=== PATIENT | male | born 1935 | race Caucasian/White ===

== ENCOUNTER 2017-08-21 14:55 | Outpatient (CLI) | payer MEDICARE ==
[2017-08-21 14:54] VITALS: BP 123/68
[~2017-08-21 14:55] MED LIST: CARV-50 PO; CITA40TA22 PO; COU1T PO; COU3T PO; DIGO125T78 PO; FURO40TA4 PO; IPRA3AMP9 NEB; LACT1CAP26 PO; LOSA25TA96 PO; POTA20TA19 PO; TAMS0.4C32 PO
== END 2017-08-21 15:50 | disposition home or self-care (01) ==
LOC: ORTHO 14:55
PROVIDERS: ATTEND Nurse Practitioner Family
DX: S72.112D Displaced fracture of greater trochanter of left femur, subsequent encounter for closed fracture with routine healing (principal); E78.00 Pure hypercholesterolemia, unspecified; I10 Essential (primary) hypertension; J44.9 Chronic obstructive pulmonary disease, unspecified; W10.9XXD Fall (on) (from) unspecified stairs and steps, subsequent encounter
CPT/HCPCS: 73552; 99213

== ENCOUNTER 2017-09-18 08:08 | Emergency (ER) | payer MEDICARE ==
[~2017-09-18 08:08] MED LIST changes: +IPRA3AMP9 IH; +METH4TAB81 PO; +MULT-38 PO
== END 2017-09-18 09:28 | disposition home or self-care (01) ==
LOC: ER 08:08
DX: M75.102 Unspecified rotator cuff tear or rupture of left shoulder, not specified as traumatic (principal); I48.91 Unspecified atrial fibrillation; I11.0 Hypertensive heart disease with heart failure; I50.9 Heart failure, unspecified; E78.00 Pure hypercholesterolemia, unspecified; Z98.890 Other specified postprocedural states; Z79.01 Long term (current) use of anticoagulants; Z79.899 Other long term (current) drug therapy; Z95.0 Presence of cardiac pacemaker
CPT/HCPCS: 29105; 73030; 99284; A4565

== ENCOUNTER 2019-02-27 22:03 | Inpatient (IN) | payer MEDICARE ==
[~2019-02-27] VITALS: Ht 185.4 cm; Wt 95.2 kg
[2019-02-27] MEDS ORDERED: acetaminophen 325mg tablet PO STA (22:17)
[2019-02-27] MEDS ORDERED: CefTRIAXone 2gm/D5W 50ml 50 ML IV ONE (22:20)
[2019-02-27 22:44] LABS: BASOPHILS # (AUTO) 0.1 X10'3 (0-0.2); BASOPHILS % (AUTO) 0.7 % (0-1); EOSINOPHILS # (AUTO) 0.1 X10'3 (0-0.9); EOSINOPHILS % (AUTO) 0.5 % (0-6); HEMOGLOBIN 10.9 g/dl (14.0-17.9); LYMPHOCYTES # (AUTO) 0.6 X10'3 (1.1-4.8); LYMPHOCYTES % (AUTO) 5.4 % (21-51); MEAN CORPUSCULAR HEMOGLOBIN 32.2 PG (27.0-31.0); MEAN CORPUSCULAR VOLUME 94.5 FL (78-98); MEAN PLATELET VOLUME 7.8 FL (7.4-10.4); MONOCYTES # (AUTO) 0.6 X10'3 (0-0.9); MONOCYTES % (AUTO) 5.3 % (2-12); NEUTROPHILS # (AUTO) 10.5 X10'3 (1.8-7.7); NEUTROPHILS % (AUTO) 88.1 % (42-75); PLATELET COUNT 213 X10'3 (140-440); RED BLOOD COUNT 3.38 X10'6 (4.70-6.10); WHITE BLOOD COUNT 11.9 X10'3 (4.5-11.0)
[2019-02-27 22:53] LABS: PARTIAL THROMBOPLASTIN TIME 38 SECONDS (22-32)
[2019-02-27 22:55] LABS: ALANINE AMINOTRANSFERASE 27 U/L (12-78); ALBUMIN 3.1 G/DL (3.4-5.0); ALBUMIN/GLOBULIN RATIO 0.8 (1.1-1.5); ALKALINE PHOSPHATASE 132 IU/L (46-116); ANION GAP 11 (8-16); ASPARTATE AMINO TRANSFERASE 23 U/L (10-37); BLOOD UREA NITROGEN 25 MG/DL (7-18); BUN/CREATININE RATIO 22.5 (5.4-32.0); CHLORIDE 97 MMOL/L (99-107); CREATININE 1.11 MG/DL (0.60-1.10); GLUCOSE 131 MG/DL (70-104); MAGNESIUM 1.8 MG/DL (1.5-2.4); POTASSIUM 4.4 MMOL/L (3.5-5.1); SODIUM 131 MMOL/L (135-145); TOTAL CARBON DIOXIDE 22.7 MMOL/L (24-32); TOTAL PROTEIN 6.8 G/DL (6.4-8.2); eGFR 63 ML/MIN
[2019-02-27] MEDS ORDERED: CefTRIAXone/D5W-Rocephin 1gm 50 ML IV ONE (23:00)
[2019-02-27] MEDS ORDERED: mag hydrox/Alum hydrox/simeth 30ml oral suspension PO PRN (23:00)
[2019-02-27] MEDS ORDERED: azithromycin/NS 500mg/250ml 250 ML IV ONE (23:00)
[2019-02-27] MEDS ORDERED: ondansetron/PF 4mg/2ml inj IV PRN (23:00)
[2019-02-27] MEDS ORDERED: acetaminophen 325mg tablet PO PRN ×2 (23:00)
[2019-02-27] MEDS ORDERED: normal saline 1000ML IV soln IVB ONE (23:05)
[2019-02-27] MEDS ORDERED: ATOR10TA87 PO (23:09)
[2019-02-27 23:10] LABS: CLARITY,URINE CLEAR (Clear); COLOR,URINE AMBER (Yellow); GLUCOSE, URINE NEGATIVE (Neg); KETONES,URINE NEGATIVE (Neg); LEUKOCYTE ESTERASE ,URINE NEGATIVE (Neg); NITRITES, URINE NEGATIVE (Neg); OCCULT BLOOD,URINE NEGATIVE (Neg); PH,URINE 5.5 (4.8-8.0); PROTEIN,URINE 30 mg/dl (Neg)
[2019-02-27 23:15] LABS: UA COLLECTION TYPE URINAL
[2019-02-27 23:16] LABS: BACTERIA,URINE NONE SEEN /HPF (Neg); FINE GRANULAR CAST 0-3 /LPF (NEGATIVE); RBC,URINE NONE SEEN /HPF (0-2); SQUAMOUS EPITHELIAL CELL,UR NONE SEEN /LPF (FEW); WBC,URINE NONE SEEN /HPF (0-4)
[2019-02-28] VITALS: BP 105/48
--- NOTE | 2019-02-28 | NUR ---
PATIENT ADMITTED TO ROOM 359A FROM ER FOR PNEUMONIA AND SEPSIS. PLACED COMFORTABLE IN BED. VITAL SIGNS TAKEN AND RECORDED.
[2019-02-28 06:10] LABS: BASOPHILS # (AUTO) 0.1 X10'3 (0-0.2); BASOPHILS % (AUTO) 0.7 % (0-1); EOSINOPHILS % (AUTO) 0.2 % (0-6); HEMATOCRIT 29.7 % (42.0-52.0); HEMOGLOBIN 10.1 g/dl (14.0-17.9); LYMPHOCYTES # (AUTO) 0.9 X10'3 (1.1-4.8); LYMPHOCYTES % (AUTO) 8.3 % (21-51); MEAN CORPUSCULAR HEMOGLOBIN 32.2 PG (27.0-31.0); MEAN CORPUSCULAR HGB CONC 33.9 g/dL (33.0-36.5); MEAN CORPUSCULAR VOLUME 94.8 FL (78-98); MEAN PLATELET VOLUME 8.3 FL (7.4-10.4); MONOCYTES # (AUTO) 0.7 X10'3 (0-0.9); MONOCYTES % (AUTO) 6.4 % (2-12); NEUTROPHILS # (AUTO) 9.6 X10'3 (1.8-7.7); NEUTROPHILS % (AUTO) 84.4 % (42-75); PLATELET COUNT 181 X10'3 (140-440); RED BLOOD COUNT 3.14 X10'6 (4.70-6.10); RED CELL DISTRIBUTION WIDTH 16.8 % (11.5-14.5); WHITE BLOOD COUNT 11.4 X10'3 (4.5-11.0)
--- NOTE | 2019-02-28 06:31 | NUR ---
Problems reprioritized. Patient report given, questions answered & plan of care reviewed with CLINT SERVIN.
[2019-02-28 06:37] LABS: ALBUMIN 2.8 G/DL (3.4-5.0); ANION GAP 10 (8-16); BLOOD UREA NITROGEN 25 MG/DL (7-18); BUN/CREATININE RATIO 23.4 (5.4-32.0); CALCIUM 8.1 MG/DL (8.5-10.1); CHLORIDE 100 MMOL/L (99-107); CREATININE 1.07 MG/DL (0.60-1.10); GLUCOSE 119 MG/DL (70-104); POTASSIUM 4.8 MMOL/L (3.5-5.1); SODIUM 137 MMOL/L (135-145); TOTAL CARBON DIOXIDE 26.7 MMOL/L (24-32); eGFR 66 ML/MIN
--- NOTE | 2019-02-28 06:40 | NUR ---
Patient in room [facility]. I have received report from Rita Salinas RN and had the opportunity to ask questions and assume patient care.
[2019-02-28 07:22] VITALS: BP 128/60
[2019-02-28] MEDS ORDERED: CEPH-572 PO (08:05)
[2019-02-28] MEDS ORDERED: carVEDilol 12.5mg tablet PO SCH (09:15)
[2019-02-28] MEDS ORDERED: digoxin 250mcg (0.25mg) tablet PO ONE (09:15)
[2019-02-28 11:00] VITALS: BP 124/61
[2019-02-28] MEDS ORDERED: ipratropium/albuterol 3ml nebule IH SCH (13:00)
[2019-02-28] MEDS: ipratropium/albuterol 3ml nebule NEB SCH ×4 (13:08→23:42)
[2019-02-28] MEDS ORDERED: phytonadione inj. 5 MG in normal saline 100ml IV soln 99.5 ML IV ONE (14:05)
--- NOTE | 2019-02-28 17:16 | NUR ---
patient seen by Dr lechuga. consult placed for Dr lucas to assess patient with regards swollen right knee. 1630 Dr lucas called by staff , awaiting call back. present most of day. patient appears to be resting comfortably at this time
--- NOTE | 2019-02-28 18:30 | NUR ---
Patient in room [facility]. I have received report from Dianna SERVIN and had the opportunity to ask questions and assume patient care. Patient having aspiration of right knee by Dr. Hastings.
--- NOTE | 2019-02-28 18:44 | NUR ---
DR Steven lucas consulted on patient and did aspiration of fluid in right knee. Dr Brennan called following this who gave order for vit K to be given on noc shift. bandaide to site CDI. patients myra called. patient appears comfortable.Report given to Veronica SERVIN
[2019-02-28] MEDS ORDERED: phytonadione inj. 2 MG in normal saline 100ml IV soln 99.8 ML IV ONE (18:45)
[2019-02-28 19:00] VITALS: BP 133/61
[2019-02-28 19:49] LABS: APPEARANCE,SYNOVIAL FLUID CLOUDY; COLOR,SYNOVIAL FLUID YELLOW
[2019-02-28 19:50] LABS: SYN RBC 1650 /CU MM (0); SYN WBC 28250 /CU MM (0-200)
[2019-02-28] MEDS: carVEDilol 12.5mg tablet PO SCH (20:38)
[2019-02-28] MEDS: lactobacillus rhamnosus 10,000 MMU CELLS/CAPSULE PO SCH (20:38)
[2019-02-28] MEDS: citalopram 20mg tablet PO SCH (20:39)
[2019-02-28] MEDS: atorvastatin 10mg tablet PO SCH (20:39)
[2019-02-28] MEDS: potassium Cl 20 mEq SR tablet PO SCH (20:40)
--- NOTE | 2019-02-28 21:24 | NUR ---
Started IV Vitamin K as ordered. patient received approximately 20 ml of the IV solution and began yelling in pain due to right and left hip pain. Pulses palpable, patient denies pain in inguinal area. Notified Dr. Beckman who states that patient can receive 10 mg of Vitamin K 10 orally. Will continue to monitor.
[2019-02-28] MEDS ORDERED: phytonadione 10 MG/1 ML amp PO ONE ×2 (21:30→22:00)
[2019-02-28] MEDS: CefTRIAXone/D5W-Rocephin 1gm 50 ML IV SCH (22:20)
[2019-02-28] MEDS: azithromycin/NS 500mg/250ml 250 ML IV SCH (23:34)
[2019-03-01] VITALS: BP 121/65
[2019-03-01] MEDS: ipratropium/albuterol 3ml nebule NEB SCH ×6 (03:03→23:30)
--- NOTE | 2019-03-01 04:20 | NUR ---
Telma called to check if there is an update. State that according to charge nurse his surgery is tentatively between 12-1 pm. Will continue to monitor.
[2019-03-01 05:36] LABS: BASOPHILS # (AUTO) 0.1 X10'3 (0-0.2); BASOPHILS % (AUTO) 1.1 % (0-1); EOSINOPHILS # (AUTO) 0.1 X10'3 (0-0.9); EOSINOPHILS % (AUTO) 0.6 % (0-6); HEMOGLOBIN 10.1 g/dl (14.0-17.9); LYMPHOCYTES % (AUTO) 11.8 % (21-51); MEAN CORPUSCULAR HGB CONC 34.8 g/dL (33.0-36.5); MONOCYTES # (AUTO) 0.8 X10'3 (0-0.9); MONOCYTES % (AUTO) 9.4 % (2-12); NEUTROPHILS # (AUTO) 6.3 X10'3 (1.8-7.7); NEUTROPHILS % (AUTO) 77.1 % (42-75); PLATELET COUNT 174 X10'3 (140-440); RED BLOOD COUNT 3.05 X10'6 (4.70-6.10); RED CELL DISTRIBUTION WIDTH 17.3 % (11.5-14.5); WHITE BLOOD COUNT 8.1 X10'3 (4.5-11.0)
[2019-03-01 06:04] LABS: ALANINE AMINOTRANSFERASE 25 U/L (12-78); ALBUMIN 2.8 G/DL (3.4-5.0); ALBUMIN/GLOBULIN RATIO 0.8 (1.1-1.5); ALKALINE PHOSPHATASE 113 IU/L (46-116); ANION GAP 9 (8-16); ASPARTATE AMINO TRANSFERASE 17 U/L (10-37); BILIRUBIN,TOTAL 0.8 MG/DL (0.1-1.0); BLOOD UREA NITROGEN 22 MG/DL (7-18); BUN/CREATININE RATIO 25.6 (5.4-32.0); CALCIUM 8.1 MG/DL (8.5-10.1); CHLORIDE 102 MMOL/L (99-107); CREATININE 0.86 MG/DL (0.60-1.10); GLUCOSE 112 MG/DL (70-104); POTASSIUM 4.6 MMOL/L (3.5-5.1); SODIUM 134 MMOL/L (135-145); TOTAL CARBON DIOXIDE 23.1 MMOL/L (24-32); TOTAL PROTEIN 6.4 G/DL (6.4-8.2); eGFR 85 ML/MIN
--- NOTE | 2019-03-01 06:32 | NUR ---
Problems reprioritized. Patient report given, questions answered & plan of care reviewed with Stefany SERVIN. Denies needs at this time.
[2019-03-01] MEDS: lactobacillus rhamnosus 10,000 MMU CELLS/CAPSULE PO SCH ×2 (07:30→16:51)
[2019-03-01 07:40] VITALS: BP 145/83
[2019-03-01] MEDS: carVEDilol 12.5mg tablet PO SCH ×2 (07:47→20:47)
[2019-03-01] MEDS: potassium Cl 20 mEq SR tablet PO SCH ×2 (07:48→20:48)
[2019-03-01] MEDS: tamsulosin 0.4mg capsule PO SCH (07:48)
[2019-03-01] MEDS: losartan 25mg tablet PO SCH (07:48)
[2019-03-01] MEDS: multivitamins, therapeutics tablet PO SCH (07:49)
[2019-03-01] MEDS: digoxin 125mcg (0.125mg) tablet PO SCH ×2 (07:49→09:25)
[2019-03-01] MEDS: furosemide 40mg tablet PO SCH (07:49)
[2019-03-01] MEDS: VANCOmycin 1250MG/NS 250ml Bag 250 ML IV SCH ×2 (09:47→20:40)
[2019-03-01 11:54] VITALS: BP 138/66
[2019-03-01 18:10] VITALS: BP 154/73
--- NOTE | 2019-03-01 18:33 | NUR ---
Problems reprioritized. Patient report given, questions answered & plan of care reviewed with MALATHI Lam and MALATHI Cifuentes.
--- NOTE | 2019-03-01 18:34 | NUR ---
Patient in room [facility]. I have received report from MALATHI Mccall and had the opportunity to ask questions and assume patient care.
[2019-03-01] MEDS: atorvastatin 10mg tablet PO SCH (20:48)
[2019-03-01] MEDS: citalopram 20mg tablet PO SCH (20:48)
[2019-03-01] MEDS: CefTRIAXone/D5W-Rocephin 1gm 50 ML IV SCH (23:04)
[2019-03-01] MEDS: azithromycin/NS 500mg/250ml 250 ML IV SCH (23:42)
[2019-03-02] VITALS (22 sets, daily range): BP systolic 127–158; BP diastolic 58–83
[2019-03-02] MEDS: ipratropium/albuterol 3ml nebule NEB SCH ×6 (03:16→23:09)
[2019-03-02 05:50] LABS: BASOPHILS # (AUTO) 0.1 X10'3 (0-0.2); BASOPHILS % (AUTO) 1.3 % (0-1); EOSINOPHILS # (AUTO) 0.1 X10'3 (0-0.9); EOSINOPHILS % (AUTO) 0.9 % (0-6); HEMATOCRIT 31.8 % (42.0-52.0); LYMPHOCYTES # (AUTO) 0.8 X10'3 (1.1-4.8); LYMPHOCYTES % (AUTO) 9.3 % (21-51); MEAN CORPUSCULAR HEMOGLOBIN 32.8 PG (27.0-31.0); MEAN CORPUSCULAR HGB CONC 34.6 g/dL (33.0-36.5); MEAN CORPUSCULAR VOLUME 94.6 FL (78-98); MEAN PLATELET VOLUME 8.5 FL (7.4-10.4); MONOCYTES # (AUTO) 0.8 X10'3 (0-0.9); MONOCYTES % (AUTO) 8.9 % (2-12); NEUTROPHILS # (AUTO) 7.1 X10'3 (1.8-7.7); NEUTROPHILS % (AUTO) 79.6 % (42-75); PLATELET COUNT 205 X10'3 (140-440); RED BLOOD COUNT 3.36 X10'6 (4.70-6.10); RED CELL DISTRIBUTION WIDTH 17.3 % (11.5-14.5)
--- NOTE | 2019-03-02 06:00 | NUR ---
Patient in room [facility]. I have received report from alexandre naranjo and had the opportunity to ask questions and assume patient care.
[2019-03-02 06:10] LABS: ALBUMIN 2.8 G/DL (3.4-5.0); ANION GAP 10 (8-16); BLOOD UREA NITROGEN 24 MG/DL (7-18); BUN/CREATININE RATIO 34.3 (5.4-32.0); CALCIUM 9.3 MG/DL (8.5-10.1); CHLORIDE 103 MMOL/L (99-107); GLUCOSE 131 MG/DL (70-104); SODIUM 134 MMOL/L (135-145); TOTAL CARBON DIOXIDE 21.1 MMOL/L (24-32); eGFR > 90 ML/MIN
[2019-03-02] MEDS ORDERED: tranexamic acid inj. 1,000 MG in normal saline 100ml IV soln 100 ML IV ONE (06:25)
--- NOTE | 2019-03-02 06:27 | NUR ---
Problems reprioritized. Patient report given, questions answered & plan of care reviewed with MALATHI Bustamante.
[2019-03-02] MEDS ORDERED: epiNEPHrine 1 mg/ml inj ONE (06:38)
[2019-03-02] MEDS ORDERED: cloNIDine hcl/PF 100mcg/ml inj ONE (06:38)
[2019-03-02] MEDS ORDERED: ketorolac trometh. 30mg/ml inj. ONE (06:38)
[2019-03-02] MEDS ORDERED: vancomycin 1,000mg inj ONE (06:39)
[2019-03-02] MEDS ORDERED: ROPIVAcaine 0.5% (5mg/ml) 30ml vial ONE (06:39)
[2019-03-02] MEDS ORDERED: propofol 10mg/ml 20ml vial IV ONE (07:31)
[2019-03-02] MEDS ORDERED: tetracaine 1% (10mg/ml) pres. free inj. ONE (07:33)
[2019-03-02] MEDS ORDERED: fentaNYL/PF 50MCG/1 ML 2ML syringe ONE (07:37)
[2019-03-02] MEDS ORDERED: cefazolin/dext.iso 2gm/100ml 100 ML IV ONE (07:40)
[2019-03-02] MEDS: VANCOmycin 1250MG/NS 250ml Bag 250 ML IV SCH ×2 (09:00→21:15)
[2019-03-02] MEDS ORDERED: ringers solution, lacted 1,000 ML IV SCH (09:11)
[2019-03-02] MEDS ORDERED: morphine 4 MG/ML inj SYRINge IV PRN ×2 (09:15)
[2019-03-02] MEDS ORDERED: meperidine/PF 25mg/ml syringe IV PRN ×3 (09:15)
[2019-03-02] MEDS ORDERED: proCHLORperazine 10 MG/2 ml inj IV PRN (09:15)
[2019-03-02] MEDS ORDERED: ondansetron/PF 4mg/2ml inj IV PRN (09:15)
--- NOTE | 2019-03-02 09:29 | NUR ---
Received from OR via , accompanied by Anesthesiologist JOHN and report given by Anesthesiolgist. AWAKE IN NO RESP DISTRESS SKIN WARM AND DRY HOB ELEVATED, FEET WARM GOOD PEDAL PULSES. DSG DI, WRAP TO RLE WITH ICK PACK. NO CO PAIN. COOK SECURED CLEAR SIRI URINE.
--- NOTE | 2019-03-02 10:39 | NUR ---
Report called to receiving nurse. Transferred via BED Belongings . Special Issues communicated to receiving nurse.AWAKE NO CO PAIN, DSG DI, ICE TO RT KNEE. GOOD PEDAL PULSES, COOK WITH GOOD UO CLEAR SIRI. UNABLE TO MOVE BLE, HOB ELEVATED VS WNL. NEEDS SUPPLEMENETAL 02 PREOP. TO ROOM ON TELE 359 FAMILY NOTIFIED.
[2019-03-02] MEDS: carVEDilol 12.5mg tablet PO SCH ×2 (11:03→21:15)
[2019-03-02] MEDS: tamsulosin 0.4mg capsule PO SCH (11:03)
[2019-03-02] MEDS: furosemide 40mg tablet PO SCH (11:04)
[2019-03-02] MEDS: multivitamins, therapeutics tablet PO SCH (11:04)
[2019-03-02] MEDS: lactobacillus rhamnosus 10,000 MMU CELLS/CAPSULE PO SCH ×2 (11:04→17:39)
[2019-03-02] MEDS: losartan 25mg tablet PO SCH (11:04)
[2019-03-02] MEDS: digoxin 125mcg (0.125mg) tablet PO SCH (11:07)
[2019-03-02] MEDS: potassium Cl 20 mEq SR tablet PO SCH ×2 (11:10→21:15)
--- NOTE | 2019-03-02 11:30 | NUR ---
patient prepared for OR. Taken to OR 0730hrs. returned to unit 1100hrs in stable condition. VSS. patient A&O x4. myra at bedside and daughter. Ice applied to right knee sleeve and changed PRN. Patient states he is not painful. will continue to monitor.
--- NOTE | 2019-03-02 12:56 | NUR ---
Patient having ECHO currently. Addendum: 03/02/19 at 1256 by Iris Renteria RN Amended: Links added.
--- NOTE | 2019-03-02 18:31 | NUR ---
Problems reprioritized. Patient report given, questions answered & plan of care reviewed with carlota SERVIN.
[2019-03-02] MEDS ORDERED: VANCOMYCIN LEVEL IV ONE (20:30)
[2019-03-02] MEDS: citalopram 20mg tablet PO SCH (21:15)
[2019-03-02] MEDS: atorvastatin 10mg tablet PO SCH (21:15)
[2019-03-02] MEDS: azithromycin/NS 500mg/250ml 250 ML IV SCH (23:15)
[2019-03-02] MEDS: CefTRIAXone/D5W-Rocephin 1gm 50 ML IV SCH (23:17)
[2019-03-03] VITALS: BP 145/68
[2019-03-03] MEDS: ipratropium/albuterol 3ml nebule NEB SCH ×5 (03:15→19:00)
[2019-03-03 05:34] LABS: ALBUMIN 2.5 G/DL (3.4-5.0); ANION GAP 6 (8-16); BLOOD UREA NITROGEN 18 MG/DL (7-18); BUN/CREATININE RATIO 22.8 (5.4-32.0); CALCIUM 7.9 MG/DL (8.5-10.1); CHLORIDE 106 MMOL/L (99-107); CREATININE 0.79 MG/DL (0.60-1.10); GLUCOSE 104 MG/DL (70-104); POTASSIUM 4.5 MMOL/L (3.5-5.1); SODIUM 137 MMOL/L (135-145); eGFR > 90 ML/MIN
[2019-03-03 05:35] LABS: BASOPHILS # (AUTO) 0.1 X10'3 (0-0.2); BASOPHILS % (AUTO) 1.1 % (0-1); EOSINOPHILS # (AUTO) 0.2 X10'3 (0-0.9); EOSINOPHILS % (AUTO) 2.4 % (0-6); HEMATOCRIT 28.4 % (42.0-52.0); HEMOGLOBIN 9.7 g/dl (14.0-17.9); LYMPHOCYTES % (AUTO) 11.4 % (21-51); MEAN CORPUSCULAR HEMOGLOBIN 32.7 PG (27.0-31.0); MEAN CORPUSCULAR HGB CONC 34.2 g/dL (33.0-36.5); MEAN CORPUSCULAR VOLUME 95.4 FL (78-98); MEAN PLATELET VOLUME 8.5 FL (7.4-10.4); MONOCYTES # (AUTO) 0.9 X10'3 (0-0.9); MONOCYTES % (AUTO) 9.7 % (2-12); NEUTROPHILS # (AUTO) 6.7 X10'3 (1.8-7.7); NEUTROPHILS % (AUTO) 75.4 % (42-75); PLATELET COUNT 223 X10'3 (140-440); RED BLOOD COUNT 2.98 X10'6 (4.70-6.10); RED CELL DISTRIBUTION WIDTH 17.1 % (11.5-14.5); WHITE BLOOD COUNT 8.8 X10'3 (4.5-11.0)
--- NOTE | 2019-03-03 06:41 | NUR ---
Patient in room [facility]. I have received report from Edil SERVIN and had the opportunity to ask questions and assume patient care.
--- NOTE | 2019-03-03 06:44 | NUR ---
Problems reprioritized. Patient report given, questions answered & plan of care reviewed with DEEJAY. Addendum: 03/03/19 at 0645 by Ernesto Servin RN Amended: Links added.
[2019-03-03] MEDS: losartan 25mg tablet PO SCH (09:24)
[2019-03-03] MEDS: tamsulosin 0.4mg capsule PO SCH (09:24)
[2019-03-03] MEDS: potassium Cl 20 mEq SR tablet PO SCH ×2 (09:24→21:12)
[2019-03-03] MEDS: digoxin 125mcg (0.125mg) tablet PO SCH (09:24)
[2019-03-03] MEDS: lactobacillus rhamnosus 10,000 MMU CELLS/CAPSULE PO SCH ×2 (09:25→17:16)
[2019-03-03] MEDS: vancomycin/NS 1 GM ADD-VANTAGE 250 ML IV SCH ×2 (09:25→21:14)
[2019-03-03] MEDS: multivitamins, therapeutics tablet PO SCH (09:25)
[2019-03-03] MEDS: carVEDilol 12.5mg tablet PO SCH ×2 (09:25→21:12)
[2019-03-03] MEDS: furosemide 40mg tablet PO SCH (09:25)
[2019-03-03 10:29] VITALS: BP 149/68
[2019-03-03 11:00] VITALS: BP 139/74
--- NOTE | 2019-03-03 11:55 | NUR ---
Patient got up by PT, PT reported that patient's OLIVER tubing that is connected to patient's dressing is broken. The broken tubing was also found on the floor. Also, patient complaint of shortness of breath after the physical therapist got him up, O2 sat was 89% at that time. RT was called to administer breathing treatment. Dr. Pauline Hastings was notified about the broken tubing of the OLIVER and that it already touched the floor, he said to leave the dressing intact. Patient reported relief of shortness of breath after the breathing treatment - O2 sat up to 99% after treatment
[2019-03-03] MEDS ORDERED: furosemide 40mg/4ml inj IV ONE (12:15)
--- NOTE | 2019-03-03 12:15 | NUR ---
Patient was feeling short of breath after getting up with Physical Therapy. RT on the floor giving patient a breathing treatment. After patients breathing treatment he was 93 % on 2L via NC. Dr Brennan on the floor and made him aware of patients episode of shortness of breath and aware we gave patient an IS. Patient is S/L we gave the patient an IS and encouraging use. Dr Brennan ordered for patient to get 40mg IV lasix x1. I notified Dr Brennan that patient is not on any anticoagulants. Received orders for Lovenox 1mg/kg BID. Notified primary MALATHI Kincaid. Primary RN Nora notified Dr. Katie Hastings that patients Paulino drainage devise broke off leaving tubing exposed. I wrapped the end of drain in sterile gauze, and used tape to secure and placed under dressing.
[2019-03-03] MEDS: HYDROcodone/acetaminophen 5mg/325mg tablet PO PRN ×2 (17:16→23:06)
--- NOTE | 2019-03-03 18:24 | NUR ---
Problems reprioritized. Patient report given, questions answered & plan of care reviewed with Edil SERVIN.
[2019-03-03 19:00] VITALS: BP 142/59
[2019-03-03 19:10] VITALS: BP 153/63
[2019-03-03] MEDS ORDERED: VANCOMYCIN LEVEL IV ONE (20:30)
[2019-03-03] MEDS: enoxaparin 30mg/0.3ml syringe SUBCUT SCH (21:13)
[2019-03-03] MEDS: enoxaparin 60mg/0.6ml syringe SUBCUT SCH (21:13)
[2019-03-03] MEDS: atorvastatin 10mg tablet PO SCH (21:15)
[2019-03-03] MEDS: citalopram 20mg tablet PO SCH (21:15)
[2019-03-04] VITALS: BP 153/63
[2019-03-04 06:03] LABS: BASOPHILS # (AUTO) 0.1 X10'3 (0-0.2); BASOPHILS % (AUTO) 0.7 % (0-1); EOSINOPHILS # (AUTO) 0.2 X10'3 (0-0.9); EOSINOPHILS % (AUTO) 2.6 % (0-6); HEMATOCRIT 29.5 % (42.0-52.0); LYMPHOCYTES # (AUTO) 1.3 X10'3 (1.1-4.8); LYMPHOCYTES % (AUTO) 14.6 % (21-51); MEAN CORPUSCULAR HEMOGLOBIN 32.1 PG (27.0-31.0); MEAN CORPUSCULAR HGB CONC 33.9 g/dL (33.0-36.5); MEAN CORPUSCULAR VOLUME 94.7 FL (78-98); MEAN PLATELET VOLUME 8.1 FL (7.4-10.4); MONOCYTES # (AUTO) 0.9 X10'3 (0-0.9); MONOCYTES % (AUTO) 10.8 % (2-12); NEUTROPHILS # (AUTO) 6.3 X10'3 (1.8-7.7); NEUTROPHILS % (AUTO) 71.3 % (42-75); PLATELET COUNT 256 X10'3 (140-440); RED BLOOD COUNT 3.12 X10'6 (4.70-6.10); RED CELL DISTRIBUTION WIDTH 17.3 % (11.5-14.5); WHITE BLOOD COUNT 8.8 X10'3 (4.5-11.0)
[2019-03-04 06:08] LABS: ALBUMIN 2.5 G/DL (3.4-5.0); ANION GAP 8 (8-16); BLOOD UREA NITROGEN 14 MG/DL (7-18); BUN/CREATININE RATIO 18.9 (5.4-32.0); CALCIUM 7.7 MG/DL (8.5-10.1); CHLORIDE 103 MMOL/L (99-107); CREATININE 0.74 MG/DL (0.60-1.10); GLUCOSE 95 MG/DL (70-104); POTASSIUM 3.8 MMOL/L (3.5-5.1); SODIUM 136 MMOL/L (135-145); TOTAL CARBON DIOXIDE 25.2 MMOL/L (24-32); eGFR > 90 ML/MIN
--- NOTE | 2019-03-04 06:24 | NUR ---
Patient in room [facility]. I have received report from Edil SERVIN and had the opportunity to ask questions and assume patient care.
[2019-03-04 07:00] VITALS: BP 171/77
--- NOTE | 2019-03-04 07:05 | NUR ---
Problems reprioritized. Patient report given, questions answered & plan of care reviewed with CLINT. Addendum: 03/04/19 at 0706 by Ernesto Servin RN Amended: Links added.
--- NOTE | 2019-03-04 07:06 | NUR ---
Patient in room [facility]. I have received report from HARIKA SERVIN and had the opportunity to ask questions and assume patient care.
[2019-03-04] MEDS: potassium Cl 20 mEq SR tablet PO SCH ×2 (09:03→20:12)
[2019-03-04] MEDS: losartan 25mg tablet PO SCH (09:03)
[2019-03-04] MEDS: digoxin 125mcg (0.125mg) tablet PO SCH (09:07)
[2019-03-04] MEDS: carVEDilol 12.5mg tablet PO SCH ×2 (09:07→20:09)
[2019-03-04] MEDS: furosemide 40mg tablet PO SCH (09:07)
[2019-03-04] MEDS: multivitamins, therapeutics tablet PO SCH (09:07)
[2019-03-04] MEDS: enoxaparin 60mg/0.6ml syringe SUBCUT SCH ×2 (09:09→20:10)
[2019-03-04] MEDS: enoxaparin 30mg/0.3ml syringe SUBCUT SCH ×2 (09:10→20:10)
[2019-03-04] MEDS: vancomycin/NS 1 GM ADD-VANTAGE 250 ML IV SCH ×2 (09:10→20:10)
[2019-03-04] MEDS: lactobacillus rhamnosus 10,000 MMU CELLS/CAPSULE PO SCH ×2 (09:12→17:27)
[2019-03-04] MEDS: tamsulosin 0.4mg capsule PO SCH (09:12)
[2019-03-04] MEDS: magnesium hydroxide 30ml (MOM) UD suspension PO PRN (09:19)
[2019-03-04] MEDS: HYDROcodone/acetaminophen 5mg/325mg tablet PO PRN ×3 (09:21→17:27)
[2019-03-04] MEDS: ipratropium/albuterol 3ml nebule NEB SCH ×4 (10:28→23:17)
[2019-03-04 11:00] VITALS: BP_SYST 118; BP_SYST 149; BP_DIAS 56; BP_DIAS 73
[2019-03-04] MEDS ORDERED: furosemide 40mg/4ml inj IV ONE (11:50)
--- NOTE | 2019-03-04 15:12 | NUR ---
Initial: Pt admit w/ acute sepsis s/p infected R TKR I&D per MD note. PO 50-75% avg heart healthy diet. LBM 03/02. Pt/SO seen by ZONIA for written/verbal high protein ed; pt agrees to chocolate ensure high protein TIDWM. Pt/SO aware that pending MD verification prior to sending on trays. Receiving MVI for healing needs. Will continue to monitor. Rec: 1. continue heart healthy diet 2. chocolate ensure high protein TIDWM; pending MD verification prior to sending on trays 3. MVI for wounds 4. wt per rx Addendum: 03/04/19 at [address] Amended: Links added.
[2019-03-04 18:00] VITALS: BP 131/74
[2019-03-04] MEDS ORDERED: lactose-reduced food (Ensure High Protein) 237ml bottle PO SCH (18:00)
--- NOTE | 2019-03-04 18:21 | NUR ---
Problems reprioritized. Patient report given, questions answered & plan of care reviewed with Edil SERVIN.
[2019-03-04 19:00] VITALS: BP 131/74
[2019-03-04] MEDS: furosemide 40mg/4ml inj IV SCH (20:09)
[2019-03-04] MEDS ORDERED: VANCOMYCIN LEVEL IV ONE (20:30)
[2019-03-04] MEDS: citalopram 20mg tablet PO SCH (21:09)
[2019-03-04] MEDS: atorvastatin 10mg tablet PO SCH (21:09)
[2019-03-04 23:47] VITALS: BP 105/53
[2019-03-05] MEDS: ipratropium/albuterol 3ml nebule NEB SCH ×6 (03:24→23:23)
[2019-03-05] MEDS: HYDROcodone/acetaminophen 5mg/325mg tablet PO PRN ×2 (04:11→09:11)
--- NOTE | 2019-03-05 06:22 | NUR ---
Problems reprioritized. Patient report given, questions answered & plan of care reviewed with CLINT. Addendum: 03/05/19 at 0623 by Ernesto Servin RN Amended: Links added.
--- NOTE | 2019-03-05 06:46 | NUR ---
Patient in room [facility]. I have received report from HARIKA SERVIN and had the opportunity to ask questions and assume patient care.
[2019-03-05] MEDS: enoxaparin 60mg/0.6ml syringe SUBCUT SCH ×2 (07:43→20:39)
[2019-03-05] MEDS: enoxaparin 30mg/0.3ml syringe SUBCUT SCH ×2 (07:44→20:40)
[2019-03-05] MEDS: carVEDilol 12.5mg tablet PO SCH ×2 (07:44→20:40)
[2019-03-05] MEDS: potassium Cl 20 mEq SR tablet PO SCH ×2 (07:44→20:42)
[2019-03-05] MEDS: multivitamins, therapeutics tablet PO SCH (07:44)
[2019-03-05] MEDS: furosemide 40mg/4ml inj IV SCH ×2 (07:45→20:40)
[2019-03-05] MEDS: losartan 25mg tablet PO SCH (07:45)
[2019-03-05] MEDS: digoxin 125mcg (0.125mg) tablet PO SCH (07:45)
[2019-03-05] MEDS: lactobacillus rhamnosus 10,000 MMU CELLS/CAPSULE PO SCH ×2 (07:45→17:29)
[2019-03-05] MEDS: tamsulosin 0.4mg capsule PO SCH (07:46)
[2019-03-05 08:00] VITALS: BP 160/67
[2019-03-05] MEDS ORDERED: VANCOMYCIN LEVEL IV ONE (08:30)
[2019-03-05] MEDS: vancomycin/NS 1 GM ADD-VANTAGE 250 ML IV SCH (09:00)
[2019-03-05 11:00] VITALS: BP 159/94
--- NOTE | 2019-03-05 13:56 | NUR ---
patient seen by DR lucas. PICC line ordered. PICC nurse paged . Patient ambulated few steps with PT using rehab walker. Patient also seen by DR Camargo and Chika Gambino . DRessing to be changed to right knee. PICC nurse presnnt in room at this time will continue to monitor. IDC DC 1300hrs.
[2019-03-05] MEDS ORDERED: diphenhydrAMINE 50 mg/ml inj IV PRN (17:15)
--- NOTE | 2019-03-05 17:37 | NUR ---
Patient observed to have redness underneath the PICC line placed this pm. Patient also has generalized itching DR Camargo aware. Benadryl 50mg IV ordered for itching . will continue to monitor.
--- NOTE | 2019-03-05 17:41 | NUR ---
catheter removed at 1330 hrs, patient has BPH and normally urinates often but small amounts per myra. Voided 100mls. Bladderscanned 240 observed . will continue to monitor.
[2019-03-05 18:00] VITALS: BP 139/61
--- NOTE | 2019-03-05 18:26 | NUR ---
Report given to Casi SERVIN
--- NOTE | 2019-03-05 18:30 | NUR ---
Patient in room [facility]. I have received report from MALATHI Bustamante and had the opportunity to ask questions and assume patient care. Addendum: 03/05/19 at 1904 by Kenneth Garcia RN Amended: Links added.
--- NOTE | 2019-03-05 19:06 | NUR ---
Patient in room [facility]. I have received report from [facility] and had the opportunity to ask questions and assume patient care.
[2019-03-05] MEDS: atorvastatin 10mg tablet PO SCH (20:37)
[2019-03-05] MEDS: citalopram 20mg tablet PO SCH (20:38)
[2019-03-05] MEDS: vancomycin inj. 750 MG in normal saline 250ml IV soln 250 ML IV SCH (20:43)
[2019-03-05] MEDS ORDERED: warfarin 10mg tablet PO ONE (21:00)
[2019-03-05] MEDS ORDERED: LIDOcaine 2% 10ml TOPICAL JELLY (Urojet) MM ONE (23:20)
[2019-03-06 00:01] VITALS: BP 140/51
--- NOTE | 2019-03-06 01:19 | NUR ---
PT RIGHT FOREARM IS REDDISH AND WARM TO THE TOUCH, FEELS SWOLLEN AND A BIT LUMPY. Addendum: 03/06/19 at 0132 by Sheyla Mcclellan RN Amended: Links added.
--- NOTE | 2019-03-06 01:25 | NUR ---
PT VOIDING FREQUENTLY BUT ONLY SCANT AMOUNTS Addendum: 03/06/19 at 0132 by Sheyla Mcclellan RN Amended: Links added.
[2019-03-06] MEDS: ipratropium/albuterol 3ml nebule NEB SCH ×5 (03:37→19:49)
[2019-03-06] MEDS: HYDROcodone/acetaminophen 10/325mg tab PO PRN ×2 (04:24→20:14)
--- NOTE | 2019-03-06 05:50 | NUR ---
AGREE WITH NURSING ASSESSMENT DONE BY MALATHI YANG Addendum: 03/06/19 at 0551 by Kenneth Garcia RN Amended: Links added.
--- NOTE | 2019-03-06 06:29 | NUR ---
Problems reprioritized. Patient report given, questions answered & plan of care reviewed with MALATHI George. Addendum: 03/06/19 at 0629 by Kenneth Garcia RN Amended: Links added.
[2019-03-06 08:12] VITALS: BP 141/52
[2019-03-06] MEDS: losartan 25mg tablet PO SCH (08:28)
[2019-03-06] MEDS: lactobacillus rhamnosus 10,000 MMU CELLS/CAPSULE PO SCH ×2 (08:28→18:21)
[2019-03-06] MEDS: furosemide 40mg/4ml inj IV SCH ×2 (08:29→19:53)
[2019-03-06] MEDS: carVEDilol 12.5mg tablet PO SCH ×2 (08:29→19:55)
[2019-03-06] MEDS: potassium Cl 20 mEq SR tablet PO SCH ×2 (08:30→19:54)
[2019-03-06] MEDS: multivitamins, therapeutics tablet PO SCH (08:30)
[2019-03-06] MEDS: tamsulosin 0.4mg capsule PO SCH (08:31)
[2019-03-06] MEDS: digoxin 125mcg (0.125mg) tablet PO SCH (08:36)
[2019-03-06] MEDS: enoxaparin 30mg/0.3ml syringe SUBCUT SCH ×2 (08:36→19:54)
[2019-03-06] MEDS: enoxaparin 60mg/0.6ml syringe SUBCUT SCH ×2 (08:37→19:54)
[2019-03-06] MEDS: vancomycin inj. 750 MG in normal saline 250ml IV soln 250 ML IV SCH ×2 (09:41→20:15)
--- NOTE | 2019-03-06 09:45 | NUR ---
Patient in room [facility]. I have received report from MALATHI Grossman and had the opportunity to ask questions and assume patient care.
[2019-03-06 12:00] VITALS: BP 138/52
--- NOTE | 2019-03-06 13:37 | NUR ---
Bladder scanned patients shows 671ml's in bladder, Patient is on Flomax,. Received orders from Dr Archer to place francis catheter for urinary retention. Discussed with patient and ok for director nursing service to place francis catheter with [employer]. Primary RN Bailey aware.
--- NOTE | 2019-03-06 14:02 | NUR ---
Reassessment: Pt continues abx tx for PNA, blood culture growing Streptococcus parasanguinous, and cultures growing enterococcus faecalis per MD notes. Pt with no c/o CP or SOB per MD notes. Pt continues on heart healthy diet with improving PO intake, previously overall stable at 50% however improving at 75-100% PO intake the last two meals. ONS still pending MD verification. LBM 03/04. Will continue to follow closely. Rec: 1. continue heart healthy diet 2. chocolate ensure high protein TIDWM; pending MD verification prior to sending on trays 3. MVI for wounds 4. wt per rx Addendum: 03/06/19 at [address] Amended: Links added.
--- NOTE | 2019-03-06 18:44 | NUR ---
Problems reprioritized. Patient report given, questions answered & plan of care reviewed with MALATHI Acevedo.
[2019-03-06 20:00] VITALS: BP 135/51
[2019-03-06] MEDS: atorvastatin 10mg tablet PO SCH (20:14)
[2019-03-06] MEDS: citalopram 20mg tablet PO SCH (20:14)
[2019-03-06] MEDS: magnesium hydroxide 30ml (MOM) UD suspension PO PRN (20:14)
[2019-03-06] MEDS ORDERED: warfarin 10mg tablet PO ONE (21:00)
[2019-03-07 00:35] VITALS: BP 125/82
[2019-03-07] MEDS: ipratropium/albuterol 3ml nebule NEB SCH ×5 (01:23→15:00)
[2019-03-07] MEDS: HYDROcodone/acetaminophen 10/325mg tab PO PRN ×3 (04:32→14:51)
[2019-03-07 05:50] LABS: ALBUMIN 2.4 G/DL (3.4-5.0); ANION GAP 5 (8-16); BLOOD UREA NITROGEN 14 MG/DL (7-18); BUN/CREATININE RATIO 18.9 (5.4-32.0); CHLORIDE 101 MMOL/L (99-107); CREATININE 0.74 MG/DL (0.60-1.10); GLUCOSE 96 MG/DL (70-104); SODIUM 136 MMOL/L (135-145); TOTAL CARBON DIOXIDE 29.7 MMOL/L (24-32); eGFR > 90 ML/MIN
[2019-03-07 06:55] VITALS: BP 136/52
[2019-03-07] MEDS: multivitamins, therapeutics tablet PO SCH (07:18)
[2019-03-07] MEDS: tamsulosin 0.4mg capsule PO SCH (07:18)
[2019-03-07] MEDS: potassium Cl 20 mEq SR tablet PO SCH (07:18)
[2019-03-07] MEDS: digoxin 125mcg (0.125mg) tablet PO SCH (07:19)
[2019-03-07] MEDS: carVEDilol 12.5mg tablet PO SCH (07:19)
[2019-03-07] MEDS: furosemide 40mg/4ml inj IV SCH (07:20)
[2019-03-07] MEDS: lactobacillus rhamnosus 10,000 MMU CELLS/CAPSULE PO SCH (07:20)
[2019-03-07] MEDS: enoxaparin 30mg/0.3ml syringe SUBCUT SCH (07:22)
[2019-03-07] MEDS: enoxaparin 60mg/0.6ml syringe SUBCUT SCH (07:22)
[2019-03-07] MEDS: losartan 25mg tablet PO SCH (07:24)
[2019-03-07] MEDS ORDERED: VANCOMYCIN LEVEL IV ONE (08:30)
[2019-03-07] MEDS: vancomycin inj. 750 MG in normal saline 250ml IV soln 250 ML IV SCH (09:38)
[2019-03-07 11:49] VITALS: BP 128/46
== END 2019-03-07 15:30 | DRG 853 ==
LOC: ER 22:03 → SUR 3N 02-28 00:15 → CMPBEDREQ 03-03 19:33
PROVIDERS: ADMIT Hospitalist; ATTEND Family Medicine
PROC: 0S9C3ZZ Drainage of Right Knee Joint, Percutaneous Approach (ICD-10-PCS; 2019-02-28)
PROC: 0SPC09Z Removal of Liner from Right Knee Joint, Open Approach (ICD-10-PCS; 2019-03-02)
PROC: 3E0T3BZ Introduction of Anesthetic Agent into Peripheral Nerves and Plexi, Percutaneous Approach (ICD-10-PCS; 2019-03-02)
PROC: 0SUV09Z Supplement Right Knee Joint, Tibial Surface with Liner, Open Approach (ICD-10-PCS; principal; 2019-03-02 07:31)
PROC: 02HV33Z Insertion of Infusion Device into Superior Vena Cava, Percutaneous Approach (ICD-10-PCS; 2019-03-05)
DX: A40.9 Streptococcal sepsis, unspecified (principal); J18.1 Lobar pneumonia, unspecified organism; T84.53XA Infection and inflammatory reaction due to internal right knee prosthesis, initial encounter; E44.0 Moderate protein-calorie malnutrition; E87.1 Hypo-osmolality and hyponatremia; I50.22 Chronic systolic (congestive) heart failure; I13.0 Hypertensive heart and chronic kidney disease with heart failure and stage 1 through stage 4 chronic kidney disease, or unspecified chronic kidney disease; J44.0 Chronic obstructive pulmonary disease with (acute) lower respiratory infection; N13.8 Other obstructive and reflux uropathy; N17.9 Acute kidney failure, unspecified; R09.02 Hypoxemia; N18.9 Chronic kidney disease, unspecified; B95.2 Enterococcus as the cause of diseases classified elsewhere; Y79.2 Prosthetic and other implants, materials and accessory orthopedic devices associated with adverse incidents; D64.9 Anemia, unspecified; E78.00 Pure hypercholesterolemia, unspecified; E78.5 Hyperlipidemia, unspecified; F32.9 Major depressive disorder, single episode, unspecified; N40.1 Benign prostatic hyperplasia with lower urinary tract symptoms; I48.2 Chronic atrial fibrillation; Z66 Do not resuscitate; M19.90 Unspecified osteoarthritis, unspecified site; Y83.1 Surgical operation with implant of artificial internal device as the cause of abnormal reaction of the patient, or of later complication, without mention of misadventure at the time of the procedure; Z79.01 Long term (current) use of anticoagulants; Y92.89 Other specified places as the place of occurrence of the external cause; Z68.27 Body mass index [BMI] 27.0-27.9, adult; Z95.0 Presence of cardiac pacemaker; Z87.891 Personal history of nicotine dependence; Z90.79 Acquired absence of other genital organ(s); Z95.2 Presence of prosthetic heart valve; Z98.52 Vasectomy status; M25.461 Effusion, right knee
CPT/HCPCS: 36415; 36569; 71045; 73560; 76937; 80048; 80053; 80162; 80202; 81001; 82948; 83605; 83735; 84145; 85025; 85610; 85730; 87040; 87070; 87077; 87081; 87186; 89051; 93005; 93306; 93971; 94640; 94760; 96365; 96368; 97110; 97116; 97161; 97530; 97535; 99285; A4215; A6454; A7000; A9272; C1758; C1776; G0378; J0171; J0456; J0696; J0735; J1200; J1650; J1885; J1940; J2175; J2704; J2795; J3010; J3370; J3430; J7050; J7120